=== PATIENT | female | born 1970 | race Caucasian/White ===

== ENCOUNTER → 2018-01-16 | Day surgery (SDC) | payer OTHER ==
[~2018-01-16] MED LIST: VITAMIN D5000 UNIT PO
--- NOTE | 2018-01-16 11:32 | Operative Report ---
Operative/Inv Procedure Report Surgery Date: 01/16/18 Name of Procedure: Examination under anesthesia hysteroscopy D&C Pre-Operative Diagnosis: Menorrhagia Post-Operative Diagnosis: 7 same Estimated Blood Loss: less than 50ml Surgeon/Third Rigger: Ferny PALMER,Ronni Bond Anesthesia: moderate sedation Specimens: emc Complications: None Condition: Good Operative Indication: Menorrhagia Operative/Procedure Note Note: The patient was placed on the operating room table and timeout was performed while the patient was awake patient was then prepped and draped in the usual sterile fashion after induction of anesthesia examination under anesthesia was formed using noted to be midline smooth and mobile somewhat enlarged. Tenaculum was placed on the anterior lip of the cervix several nabothian cysts were noted in the cervical canal was dilated with a Improve Digital dilator hysteroscopic camera was introduced using sterile saline as distention medium uterus was sounded to 10 cm otherwise a thick endometrial lining held no polyps or fibroids were noted. Sharp curettage taken of the endometrial cavity was sent to pathology for examination. The single-tooth tenaculum was removed hemostasis was good patient was awakened and moved to recovery room in good condition Findings: Enlarged uterus normal anatomy Discharge Disposition: Same Day Admissions
== END ==
LOC: STS 03:06
DX: N92.1 Excessive and frequent menstruation with irregular cycle (principal); N85.8 Other specified noninflammatory disorders of uterus; N93.8 Other specified abnormal uterine and vaginal bleeding; N85.2 Hypertrophy of uterus
CPT/HCPCS: 81025; J2250